=== PATIENT | female | born 1955 | race Caucasian/White ===

== ENCOUNTER → 2018-07-21 | Outpatient (CLI) | payer OTHER ==
[~2018-07-21] MED LIST: OMNIPAQUE 350 MG/ML, 75ML BOTTLE ONE
== END | disposition home or self-care (01) ==
LOC: CFH 08:56
PROVIDERS: ATTEND Nurse Practitioner Family
DX: J98.11 Atelectasis (principal); Z87.01 Personal history of pneumonia (recurrent)
CPT/HCPCS: 71260; 82565; Q9967

== ENCOUNTER 2018-12-12 14:20 | Outpatient (CLI) | payer OTHER | END 2018-12-12 23:59 | disposition home or self-care (01) | LOC: CFH 14:20 | PROVIDERS: ATTEND Specialist | DX: Z12.31 Encounter for screening mammogram for malignant neoplasm of breast (principal) | CPT/HCPCS: 77067 ==